=== PATIENT | male | born 1950 | race African-American/Black ===

== ENCOUNTER → 2017-01-03 | Outpatient (CLI) | payer BC, MEDICARE ==
[~2017-01-03] MED LIST: ACET-822 PO; ASPI-183 PO; ASPI325T24 PO; ATOR10 PO; BEDSIDE COMMODE1 MI1; CARD240C6 PO; CIAL5TAB PO; CLAR10CA3 PO; CLOP75 PO; CYMB60CA PO; DIFL500T PO; DIOV320T PO; FERR324T PO; GLUCTAB PO; HYDR-3583 PO; HYDR10TA16 PO; LIPI40TA PO; METF1000 PO; METO50TA PO; MULTTAB67 PO; NEUR600T PO; NIFE1TAB85 PO; NIFE1TAB86 PO; OMEGCAP PO; OMEP20TA93 PO; OSTEO BIFLEX TRIPLE PO; PLAV75TA29 PO; TAB-TAB PO; VARE1 PO; WALKER WHEELS/F1 MIS
== END ==
LOC: CPRE 11:19
PROVIDERS: ATTEND Orthopaedic Surgery Orthopaedic Surgery of the Spine
DX: Z00.00 Encounter for general adult medical examination without abnormal findings (principal)

== ENCOUNTER 2017-01-10 10:13 | Inpatient (IN) | payer BC, MEDICARE ==
[~2017-01-10] VITALS: Ht 185.4 cm; Wt 121.1 kg
[~2017-01-10 10:13] MED LIST changes: -ACET-822 PO; -ASPI-183 PO; +ASPI325T PO; -ASPI325T24 PO; -ATOR10 PO; -BEDSIDE COMMODE1 MI1; -CARD240C6 PO; -CIAL5TAB PO; -CLOP75 PO; -DIFL500T PO; -FERR324T PO; -GLUCTAB PO; -HYDR10TA16 PO; -NIFE1TAB86 PO; +OMEP20TA PO; -OMEP20TA93 PO; -TAB-TAB PO; -VARE1 PO; -WALKER WHEELS/F1 MIS
[2017-01-10] MEDS ORDERED: POVIDONE IODINE 5% (ANTISEPSIS KIT) 4 APPLICATIONS EACH NARE PRN (11:00)
[2017-01-10] MEDS ORDERED: CHLORHEXIDINE GLUCONATE 4% SOLN 120 ML BTL TOPICAL SCH (11:00)
[2017-01-10] MEDS ORDERED: CHLORHEXIDINE GLUCONATE 2 % 1 PACK (2 CLOTHS) TOPICAL PRN (11:00)
[2017-01-10] MEDS ORDERED: INSULIN HUMAN REGULAR 1,000 UNITS/10 ML VIAL SQ PRN (11:00)
[2017-01-10] MEDS ORDERED: VANCOMYCIN 1000 MG/NS 250 ML (for <70 kg) IV SCH ×2 (11:00)
[2017-01-10] MEDS ORDERED: SODIUM CHLORID 0.9% 500 ML IV PRN (11:00)
[2017-01-10] MEDS ORDERED: LACTATED RINGER'S 1000 ML IV PRN (11:00)
[2017-01-10] MEDS ORDERED: ceFAZolin 2 GM PREMIX 50 ML IV SCH (11:00)
[2017-01-10] MEDS ORDERED: METOPROLOL TARTRATE 25 MG TAB PO PRN (11:00)
[2017-01-10] MEDS ORDERED: NIFE1TAB86 PO (11:09)
[2017-01-10] MEDS ORDERED: ACET-822 PO (11:11)
[2017-01-10] MEDS ORDERED: GENTAMICIN SULFATE 80 MG/2 ML VIAL ONE (11:29)
[2017-01-10] MEDS ORDERED: ACETAMINOPHEN 1000 MG/100 ML 100 ML IV ONE (11:31)
[2017-01-10] MEDS ORDERED: HYDROmorphone HCL PF 2 MG/ML VIAL ONE (12:10)
[2017-01-10] MEDS ORDERED: ACETAMINOPHEN/HYDROcodone 325 MG/10 MG TAB PO PRN (15:00)
[2017-01-10] MEDS ORDERED: Post-op Orders (for Pharmacy) MISC XX ONE (15:00)
[2017-01-10] MEDS ORDERED: SODIUM CHLORIDE 0.9% FLUSH 5 ML FLUSH IVF PRN (15:00)
[2017-01-10] MEDS ORDERED: ZOLPIDEM TARTRATE 5 MG TAB PO PRN (15:00)
[2017-01-10] MEDS ORDERED: ONDANSETRON HCL 4 MG/2 ML VIAL IVP PRN (15:00)
[2017-01-10] MEDS ORDERED: ALUMINUM/MAGNESIUM/SIMETH 30 ML CUP PO PRN (15:00)
[2017-01-10] MEDS: SODIUM CHLORIDE 0.9% FLUSH 5 ML FLUSH IVF SCH ×2 (15:00→20:58)
--- NOTE | 2017-01-10 15:02 | HHI.PR ---
Immediate Post Op Note Procedure Date: Jan 10, 2017 Pre Op Diagnosis: L Hip OA Post Op Diagnosis: Same Surgeon: Royce Robb MD Egyptologist(s): Sobeida Palomino PA-C Procedure: L THR Complications: None Specimen(s) removed: None Estimated blood loss: 350cc Anesthesia: General Drains: None Patient to: PACU Patient Condition: Good Implant/Devices: SEE IMPLANT LOG (if applicable) Date/Time of Procedure: SEE SURGICAL CARE RECORD Royce Robb MD Jan 10, 2017 15:02
--- NOTE | 2017-01-10 15:06 | HHI.FF ---
Face to Face Verification Diagnosis: (1) Osteoarthritis of left hip Physical Therapy Gait training, Transfer training, bed to chair Hip: Total hip, Protocol: Left, Progress to weight bearing Right LE Weight Bearing: WB as tolerated Left LE Weight Bearing: WB as tolerated Nursing RN Days per Week: 3 x Week(s): 4 Nursing: Dressing changes (clean incision with alcohol and apply dry, sterile dressing ) Additional Instructions Pt/INR q Tuesday and , call/text results to Sobeida MALONE [phone] Goal INR 1.5-1.8 I have seen patient Billy Mcclure on 01/10/17. My clinical findings support the need for the requested home health care services because: Deconditioned w/ increased weakness I certify that my clinical findings support that this patient is homebound because: Post-op weakness Royce Robb MD Jan 10, 2017 15:06
[2017-01-10] MEDS ORDERED: WALKER WHEELS/F1 MIS (15:07)
[2017-01-10] MEDS ORDERED: DO NOT ADM ANY ANTICOAGULANT DRUGS PRN (15:07)
[2017-01-10] MEDS ORDERED: BEDSIDE COMMODE1 MI1 (15:07)
[2017-01-10] MEDS ORDERED: *morphine SULFATE 8 MG/ML PERIprocedure ONLY ONE ×2 (15:19→15:46)
--- NOTE | 2017-01-10 15:29 | MP ---
cc: LEO PEDRAZA MD GILLESPY, ALBERT DATE OF SURGERY: January 10, 2017 PREOPERATIVE DIAGNOSIS 1. Left hip severe osteoarthritis. 2. Obesity. POSTOPERATIVE DIAGNOSIS 1. Left hip severe osteoarthritis. 2. Obesity. PROCEDURE Left total hip arthroplasty. SURGEON Fabricio Robb MD JOB PLACEMENT SPECIALIST JAKI Gold ANESTHESIA General. COMPLICATIONS None. SPECIMEN None. ESTIMATED BLOOD LOSS 350 ccs. DRAIN None. CONDITION Stable. PLAN OF ACTIVITY Per orders. PROCEDURE My review assistant JAKI Gold was present for the entire surgical case. She was medically necessary for the entire case because of the complexity of the case and to facilitate the performance of the procedure. The INSURANCE AGENCY OWNER at the back table was not a skill set for this case to manipulate the instruments, e.g., the multiple different types of soft tissue retractors, trial implants and also permanent implants. The patient was brought in the operating room and had satisfactory general anesthesia by the Department of Anesthesia. The patient was placed in the lateral decubitus position. Because of the patient's obesity great care was made to protect all pressure points. The left hip and lower extremity was prepped and draped in usual sterile manner. A small posterolateral exposure to the hip was made. Dissection was carried through considerable amount of adipose tissue. Dissection was carried down to the fascia jose. The fascia jose and gluteus jolly was incised in line with the skin incision. Charnley retractor was placed in the wound in order to allow better exposure. Great care was made to protect the sciatic nerve throughout the entire operative procedure. The short externals removed as a group. The hip abductors were preserved. Capsulotomy was performed of the hip and the hip was dislocated posteriorly. The patient was found to have severe osteoarthritis involving the left hip joint. Osteotomy was made on the neck at the appropriate level. Exposure of the acetabulum was made. 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 The hip was initially medialized and then reamed to 55 mm outer diameter. Bicentric cup, Press-Fit type manner was found to be stable and satisfactory. This was removed. Preparation for the femur was made. Using the BiomTinypass taper lock system it was sequentially broached to a #12 broach. Trial reduction was made with 0 neck, 28 mm head. The hip was again reduced. The patient was found to have satisfactory limb length, satisfactory stability and satisfactory range of motion. The trial components were removed. The wound was irrigated with copious amounts of sterile saline antibiotic solution. A #12 prosthesis Biomet taper lock was then inserted into the femur approximately 15-20 degrees anteversion. It was an excellent fit and fill. A ceramic head was then used, 28 mm ball. The hip was then reduced with a 55 mm bicentric cup in a Press-Fit type manner, 0 neck on the stem with standard offset. The patient again was found to have satisfactory limb length, satisfactory stability and satisfactory range of motion. The short external was repaired back to the greater trochanter with drill holes using #2 Tycron suture. The fascia jose and gluteus jolly ___ in line with skin incision using #2 Tycron suture. Subcu tissue layer was closed in layers with 0 Vicryl and 2-0 Vicryl, skin was approximated with running subcuticular 2-0 Nylon. Sterile dressing was applied. The patient tolerated the procedure well and arrived in the recovery room in stable and satisfactory condition. MD MICHAEL Kohli/TLL /2:47 PM /3:00 PM
[2017-01-10] MEDS ORDERED: MORPHINE SULFATE 10 MG/ML INJ IM PRN (15:30)
[2017-01-10] MEDS: LACTATED RINGER'S 1000 ML INJ 1,000 ML IV SCH (15:40)
--- NOTE | 2017-01-10 15:55 | RADRPT ---
EXAM DATE/TIME: 01/10/2017 15:26 [facility] COMPARISON: No previous studies available for comparison. INDICATIONS : Post left total hip arthroplasty MEDICAL HISTORY : Arthritis. SURGICAL HISTORY : Right total hip arthroplasty ENCOUNTER: Initial ACUITY: 1 day PAIN SCORE: 0/10 LOCATION: Left Hip FINDINGS: There is a right hip arthroplasty in gross anatomic alignment. Apparent interval placement of left-si ded hip arthroplasty. Prosthetic components appear well positioned and in anatomic alignment. No sign ificant acute bony fracture. Postsurgical changes noted in the soft tissues. CONCLUSION: 1. Status post left hip arthroplasty in anatomic alignment without significant acute fracture. Curtis Cruz MD on January 10, 2017 at 15:50 Board Certified Radiologist. This report was verified electronically.
[2017-01-10 17:00] VITALS: BP 156/66; PULSE 86; RESP 18; TEMP 98.7; O2SAT 95
[2017-01-10 17:28] VITALS: O2SAT 96
[2017-01-10] MEDS: metFORMIN HCL 500 MG TAB PO SCH (17:53)
[2017-01-10] MEDS: GABAPENTIN 300 MG CAP PO SCH (17:54)
[2017-01-10] MEDS: ACETAMINOPHEN/HYDROcodone 325 MG/10 MG TAB PO PRN ×2 (17:54→22:08)
[2017-01-10 19:45] VITALS: BP 108/56; PULSE 105; RESP 19; TEMP 98.8; O2SAT 96
[2017-01-10] MEDS: METOPROLOL TARTRATE 50 MG TAB PO SCH (20:58)
[2017-01-10] MEDS: ATORVASTATIN 40 MG TAB PO SCH (20:58)
[2017-01-11] VITALS (7 sets, daily range): BP systolic 127–166; BP diastolic 62–79; PULSE 75–91; RESP 16–20; TEMP 100–101.5; O2SAT 93–96
[2017-01-11] MEDS: LACTATED RINGER'S 1000 ML INJ 1,000 ML IV SCH ×2 (00:52→17:03)
[2017-01-11] MEDS: ACETAMINOPHEN/HYDROcodone 325 MG/10 MG TAB PO PRN ×6 (02:05→23:32)
[2017-01-11 05:47] LABS: HEMATOCRIT 34.6 % (39.0-51.0); REVIEW FLAG FINAL
[2017-01-11 05:50] LABS: PROTHROMBIN TIME - PATIENT 11.6 SEC (9.8-11.6)
--- NOTE | 2017-01-11 07:04 | PD.ORT.PN ---
Subjective Subjective Remarks POD#1 L THR No chest pain;no SOB Answered mutiple questions Objective Vitals Vital Signs Date Time Temp Pulse Resp B/P (MAP) Pulse Ox O2 Delivery O2 Flow Rate FiO2 01/11/17 03:55 100.0 84 18 133/69 (90) 95 01/11/17 00:45 100.1 91 18 127/62 (83) 93 01/10/17 19:45 98.8 105 19 108/56 (73) 96 01/10/17 19:13 Nasal Cannula 3.00 01/10/17 17:28 96 Nasal Cannula 2.00 01/10/17 17:00 98.7 86 18 156/66 (96) 95 01/10/17 16:30 98.6 63 16 142/69 (93) 96 Nasal Cannula 2 01/10/17 16:15 61 15 153/74 (100) 96 01/10/17 16:00 67 16 142/75 (97) 95 01/10/17 15:45 58 11 143/70 (94) 96 2 01/10/17 15:30 62 17 147/66 (93) 96 01/10/17 15:15 59 24 143/66 (91) 92 Nasal Cannula 3 01/10/17 15:06 98.4 98 16 134/71 (92) 98 Simple Mask 6 01/10/17 11:00 98.8 64 16 180/93 (122) 97 I/O 01/10/17 01/10/17 01/10/17 01/11/17 01/11/17 01/11/17 07:00 15:00 23:00 07:00 15:00 23:00 Intake Total 720 ml 1691 ml Output Total 900 ml 725 ml Balance -180 ml 966 ml Intake Oral 720 ml 480 ml IV Total 1211 ml Output Urine Total 900 ml 725 ml # Bowel Movements 0 Result Diagram: 01/11/17 0515 Other Results Laboratory Tests Test 01/11/17 05:15 Prothromb Time International Ratio 1.0 RATIO Prothrombin Time 11.6 SEC (9.8-11.6) Objective Remarks N/V intact No LLD No calf tenderness;neg darwin's sign Assessment & Plan Assessment and Plan Ortho stable PT,Rehab Coumadin,TEDS,Sequentials for DVT prophylaxsis Discharge home tomorrow with [facility] nursing,PT Royce Robb MD Jan 11, 2017 07:04
[2017-01-11] MEDS: GABAPENTIN 300 MG CAP PO SCH (08:48)
[2017-01-11] MEDS: PANTOPRAZOLE SOD 20 MG DELAYED RELEASE TAB PO SCH (08:48)
[2017-01-11] MEDS: VALSARTAN 160 MG TAB PO SCH (08:48)
[2017-01-11] MEDS: METOPROLOL TARTRATE 50 MG TAB PO SCH ×2 (08:48→20:11)
[2017-01-11] MEDS: DULoxetine HCl DR 60 MG CAP PO SCH (08:49)
[2017-01-11] MEDS: LORATADINE 10 MG TAB PO SCH (08:49)
[2017-01-11] MEDS: metFORMIN HCL 500 MG TAB PO SCH ×2 (08:49→16:51)
[2017-01-11] MEDS: NIFEdipine 60 MG SUSTAINED RELEASE TAB PO SCH (08:49)
[2017-01-11] MEDS: SODIUM CHLORIDE 0.9% FLUSH 5 ML FLUSH IVF SCH ×2 (08:50→20:11)
--- NOTE | 2017-01-11 11:43 | PD.CONS ---
HPI Service [facility] Hospitalists Consult Requested By Dr. Robb Reason for Consult Medical management Primary Care Physician Non-Staff Diagnoses: (1) Hypertension (2) Diabetes mellitus (3) Peripheral arterial disease (4) Osteoarthritis of left hip History of Present Illness The patient is a 66-year-old male here for left total hip arthroplasty. Hospitalist consult was requested for medical management. The patient states that he is having pain in the left hip, which is not really controlled with the current pain medications. He states that he takes pain medication at home. No chest pain or dyspnea. No other complaints at this time. Review of Systems Constitutional: DENIES: Fever, Chills, Night Sweats Eyes: DENIES: Blurred vision, Vision loss Ears, nose, mouth, throat: DENIES: Hearing loss Respiratory: DENIES: Cough, Wheezing, Sputum production, Shortness of breath Cardiovascular: DENIES: Chest pain, Palpitations, Dyspnea on Exertion, Lower Extremity Edema Gastrointestinal: DENIES: Abdominal pain, Constipation, Diarrhea, Nausea, Vomiting Genitourinary: DENIES: Urinary frequency, Urinary incontinence, Urgency, Hematuria, Dysuria, Nocturia Musculoskeletal: COMPLAINS OF: Joint pain, DENIES: Muscle aches Integumentary: DENIES: Pruritus, Rash Hematologic/lymphatic: DENIES: Bruising Neurologic: DENIES: Headache Past Family Social History Allergies: Coded Allergies: benazepril (Unverified Allergy, Intermediate, 01/10/17) captopril (Unverified Allergy, Intermediate, 01/10/17) enalaprilat (Unverified Allergy, Intermediate, 01/10/17) fosinopril (Unverified Allergy, Intermediate, 01/10/17) lisinopril (Unverified Allergy, Intermediate, 01/10/17) quinapril (Unverified Allergy, Intermediate, 01/10/17) Past Medical History Hypertension Hyperlipidemia Diabetes mellitus Peripheral arterial disease Past Surgical History Left total hip arthroplasty 01/10/17 Right total hip arthroplasty Elbow surgery Reported Medications See list Family History Heart disease Diabetes Social History Quit smoking 6 years ago. Drinks 2 alcoholic beverages per day. Denies illicit drug use. Physical Exam Vital Signs Vital Signs Date Time Temp Pulse Resp B/P (MAP) Pulse Ox O2 Delivery O2 Flow Rate FiO2 01/11/17 08:00 101.3 81 20 161/73 (102) 96 01/11/17 03:55 100.0 84 18 133/69 (90) 95 01/11/17 00:45 100.1 91 18 127/62 (83) 93 01/10/17 19:45 98.8 105 19 108/56 (73) 96 01/10/17 19:13 Nasal Cannula 3.00 01/10/17 17:28 96 Nasal Cannula 2.00 01/10/17 17:00 98.7 86 18 156/66 (96) 95 01/10/17 16:30 98.6 63 16 142/69 (93) 96 Nasal Cannula 2 01/10/17 16:15 61 15 153/74 (100) 96 01/10/17 16:00 67 16 142/75 (97) 95 01/10/17 15:45 58 11 143/70 (94) 96 2 01/10/17 15:30 62 17 147/66 (93) 96 01/10/17 15:15 59 24 143/66 (91) 92 Nasal Cannula 3 01/10/17 15:06 98.4 98 16 134/71 (92) 98 Simple Mask 6 Physical Exam GENERAL: Well-nourished, well-developed male in no acute distress. Sitting up in a chair. HEENT: Normocephalic, atraumatic. Pupils equal, round and reactive. Extraocular movements intact. No scleral icterus. No injection or drainage. Oropharynx is clear. Mucous membranes are moist. Poor dentition. CARDIOVASCULAR: Regular rate and rhythm without murmurs, gallops, or rubs. RESPIRATORY: Clear to auscultation. No wheezes, rales, or rhonchi. Breathing is non-labored. GASTROINTESTINAL: Abdomen soft, non-tender, nondistended. EXTREMITIES: No lower extremity edema. No calf tenderness. LEIGHTON hose. PSYCH: Alert and oriented x 3. Laboratory Laboratory Tests Test 01/11/17 05:15 Hemoglobin 11.6 Hematocrit 34.6 Prothrombin Time 11.6 Prothromb Time International Ratio 1.0 Result Diagram: 01/11/17 0515 Imaging Last Impressions Hip and Pelvis X-Ray 01/10/17 0000 Signed Impressions: Service Date/Time: Tuesday, January 10, 2017 15:26 - CONCLUSION: 1. Status post left hip arthroplasty in anatomic alignment without significant acute fracture. Curtis Cruz MD Assessment and Plan Assessment and Plan 1. Left hip osteoarthritis: Status post left total hip arthroplasty, POD #1. Management per orthopedic surgery. Continue pain control, bowel regimen. 2. Hypertension: Continue Procardia, Diovan, metoprolol. 3. Hyperlipidemia: Continue statin. 4. Diabetes mellitus: Continue metformin. Monitor Accu-Cheks and cover with sliding scale insulin. 5. DVT prophylaxis: Coumadin. Problem Qualifiers (1) Osteoarthritis of left hip: Qualified Codes: M16.12 - Unilateral primary osteoarthritis, left hip Romie Crum MD Jan 11, 2017 11:43
[2017-01-11] MEDS ORDERED: DEXTROSE 50% IN WATER 50 ML VIAL(D50) IV PUSH PRN (11:45)
[2017-01-11] MEDS ORDERED: GLUCAGON 1 MG/ML VIAL OTHER PRN (11:45)
[2017-01-11] MEDS: INSULIN ASPART SUPPLEMENTAL SCALE SQ SCH ×3 (12:00→21:22)
[2017-01-11] MEDS ORDERED: WARFARIN SOD 5 MG TAB PO SCH (16:00)
[2017-01-11] MEDS ORDERED: WARFARIN SOD 7.5 MG TAB PO ONE (16:00)
[2017-01-11] MEDS: ATORVASTATIN 40 MG TAB PO SCH (20:11)
[2017-01-11] MEDS: DOCUSATE SODIUM 100 MG CAP PO SCH (20:11)
[2017-01-12 00:20] VITALS: BP 133/63; PULSE 85; RESP 18; TEMP 99.7; O2SAT 96
[2017-01-12] MEDS: ACETAMINOPHEN/HYDROcodone 325 MG/10 MG TAB PO PRN ×3 (03:49→12:11)
[2017-01-12 04:15] VITALS: BP 148/72; PULSE 66; RESP 18; TEMP 99.9; O2SAT 97
[2017-01-12] MEDS: LACTATED RINGER'S 1000 ML INJ 1,000 ML IV SCH (04:30)
[2017-01-12 06:17] LABS: AUTOMATED NEUTROPHIL # 5.4 TH/MM3 (1.8-7.7); BASOPHIL % 0.5 % (0.0-2.0); EOSINOPHIL % 0.4 % (0.0-4.0); HEMO FLAGS DIFF FINAL; LYMPH % 19.2 % (9.0-44.0); LYMPHOCYTE # 1.5 TH/MM3 (1.0-4.8); MEAN CELL VOLUME 88.4 FL (80.0-100.0); MEAN CORPUSCULAR HEMOGLOBIN 29.9 PG (27.0-34.0); MEAN CORPUSCULAR HGB CONC 33.8 % (32.0-36.0); MONO % 12.1 % (0.0-8.0); NEUT % 67.8 % (16.0-70.0); PLATELET COUNT 143 TH/MM3 (150-450); RED BLOOD COUNT 3.85 MIL/MM3 (4.50-5.90); RED CELL DISTRIBUTION WIDTH 13.7 % (11.6-17.2)
[2017-01-12 06:25] LABS: INTERNATIONAL NORMALIZED RATIO 1.1 RATIO; PROTHROMBIN TIME - PATIENT 11.7 SEC (9.8-11.6)
[2017-01-12 06:47] LABS: BICARBONATE 25.3 MEQ/L (21.0-32.0); POTASSIUM 3.3 MEQ/L (3.5-5.1)
--- NOTE | 2017-01-12 07:48 | PD.ORT.PN ---
Subjective Subjective Remarks pt doing much better ready to go home today, already has all his bags packed Objective Vitals Vital Signs Date Time Temp Pulse Resp B/P (MAP) Pulse Ox O2 Delivery O2 Flow Rate FiO2 01/12/17 04:15 99.9 66 18 148/72 (97) 97 01/12/17 00:20 99.7 85 18 133/63 (86) 96 01/11/17 19:22 101.5 91 16 166/79 (108) 96 01/11/17 16:00 100.8 91 16 157/72 (100) 94 01/11/17 16:00 16 01/11/17 12:11 100.5 75 18 162/79 (106) 95 01/11/17 11:00 93 21 01/11/17 08:00 101.3 81 20 161/73 (102) 96 I/O 01/11/17 01/11/17 01/11/17 01/12/17 01/12/17 01/12/17 07:00 15:00 23:00 07:00 15:00 23:00 Intake Total 1691 ml 760 ml 720 ml 600 ml Output Total 725 ml 1200 ml 1250 ml 1050 ml Balance 966 ml -440 ml -530 ml -450 ml Intake Oral 480 ml 760 ml 720 ml 600 ml IV Total 1211 ml Output Urine Total 725 ml 1200 ml 1250 ml 1050 ml # Bowel Movements 0 0 0 Result Diagram: 01/12/17 0535 01/12/17 0535 Other Results Laboratory Tests Test 01/12/17 05:35 Prothromb Time International Ratio 1.1 RATIO Prothrombin Time 11.7 SEC (9.8-11.6) Objective Remarks sitting up in chair, in room left hip dressing dry and intact N/V intact No LLD No calf tenderness;neg darwin's sign Assessment & Plan Assessment and Plan POD # 2 s/p L ANTONELLA Ortho stable PT,Rehab Coumadin,TEDS,Sequentials for DVT prophylaxsis Discharge home today with [facility] nursing,PT orthopedically stable Sobeida Palomino Jan 12, 2017 07:48
[2017-01-12 08:00] VITALS: BP 185/80; PULSE 98; RESP 20; TEMP 100.4; O2SAT 93
[2017-01-12] MEDS: INSULIN ASPART SUPPLEMENTAL SCALE SQ SCH ×2 (08:00→12:00)
[2017-01-12] MEDS: LORATADINE 10 MG TAB PO SCH (08:09)
[2017-01-12] MEDS: DOCUSATE SODIUM 100 MG CAP PO SCH (08:10)
[2017-01-12] MEDS: DULoxetine HCl DR 60 MG CAP PO SCH (08:10)
[2017-01-12] MEDS: PANTOPRAZOLE SOD 20 MG DELAYED RELEASE TAB PO SCH (08:10)
[2017-01-12] MEDS: VALSARTAN 160 MG TAB PO SCH (08:10)
[2017-01-12] MEDS: metFORMIN HCL 500 MG TAB PO SCH (08:10)
[2017-01-12] MEDS: METOPROLOL TARTRATE 50 MG TAB PO SCH (08:10)
[2017-01-12] MEDS: NIFEdipine 60 MG SUSTAINED RELEASE TAB PO SCH (08:15)
[2017-01-12] MEDS: SODIUM CHLORIDE 0.9% FLUSH 5 ML FLUSH IVF SCH (08:19)
--- NOTE | 2017-01-12 10:42 | HHI.PR ---
Subjective Remarks Follow-up hypertension, diabetes. The patient has no complaints at this time. He is still having pain in the left hip, but states that it is tolerable. He states that he is going home today. He denies chest pain, dyspnea, cough. Denies nausea or vomiting. Denies dysuria. Objective Vitals Vital Signs Date Time Temp Pulse Resp B/P (MAP) Pulse Ox O2 Delivery O2 Flow Rate FiO2 01/12/17 08:00 100.4 98 20 185/80 (115) 93 01/12/17 04:15 99.9 66 18 148/72 (97) 97 01/12/17 00:20 99.7 85 18 133/63 (86) 96 01/11/17 19:22 101.5 91 16 166/79 (108) 96 01/11/17 16:00 100.8 91 16 157/72 (100) 94 01/11/17 16:00 16 01/11/17 12:11 100.5 75 18 162/79 (106) 95 01/11/17 11:00 93 21 I/O 01/11/17 01/11/17 01/11/17 01/12/17 01/12/17 01/12/17 07:00 15:00 23:00 07:00 15:00 23:00 Intake Total 1691 ml 760 ml 720 ml 600 ml Output Total 725 ml 1200 ml 1250 ml 1050 ml Balance 966 ml -440 ml -530 ml -450 ml Intake Oral 480 ml 760 ml 720 ml 600 ml IV Total 1211 ml Output Urine Total 725 ml 1200 ml 1250 ml 1050 ml # Bowel Movements 0 0 0 Result Diagram: 01/12/17 0535 01/12/17 0535 Imaging Last Impressions Hip and Pelvis X-Ray 01/10/17 0000 Signed Impressions: Service Date/Time: Tuesday, January 10, 2017 15:26 - CONCLUSION: 1. Status post left hip arthroplasty in anatomic alignment without significant acute fracture. Curtis Cruz MD Objective Remarks General: No acute distress. Sitting up in a chair. Heart: Regular rate and rhythm. No murmur. Lungs: Clear to auscultation bilaterally. No wheezes, rales, or rhonchi. Breathing is nonlabored. Abdomen: Soft, nontender, nondistended. Extremities: No lower extremity edema. Psych: Alert and oriented. Procedures 01/10/17 left total hip arthroplasty Urinary Catheter: No Vascular Central Line Catheter: No A/P Problem List: (1) Hypertension ICD Code: I10 - Essential (primary) hypertension (2) Diabetes mellitus ICD Code: E11.9 - Type 2 diabetes mellitus without complications (3) Peripheral arterial disease ICD Code: I73.9 - Peripheral vascular disease, unspecified (4) Osteoarthritis of left hip ICD Code: M16.12 - Unilateral primary osteoarthritis, left hip Assessment and Plan 1. Left hip osteoarthritis: Status post left total hip arthroplasty, POD #2. Management per orthopedic surgery. Continue pain control, bowel regimen. 2. Hypertension: Continue Procardia, Diovan, metoprolol. 3. Hyperlipidemia: Continue statin. 4. Diabetes mellitus: Continue metformin. Monitor Accu-Cheks and cover with sliding scale insulin. 5. DVT prophylaxis: Coumadin. 6. Fever: Uncertain etiology. Patient denying respiratory or urinary symptoms. He does not want further workup stating "this happened the last time I was here too". Continue incentive spirometry. Patient was advised to return to the hospital if he develops any shortness of breath, worsening fever, dysuria, or other symptoms. Discharge Planning Discharge home today per orthopedic surgery. Problem Qualifiers (1) Osteoarthritis of left hip: Qualified Codes: M16.12 - Unilateral primary osteoarthritis, left hip Romie Crum MD Jan 12, 2017 10:42
[2017-01-12 11:08] VITALS: O2SAT 92
[2017-01-12] MEDS ORDERED: POTASSIUM CHLORIDE 10 MEQ CONTROLLED RELEASE TAB PO ONE (11:30)
[2017-01-12] MEDS ORDERED: WARFARIN SOD 5 MG TAB PO SCH (16:00)
== END 2017-01-12 14:08 | disposition home health service (06) | DRG 470 ==
LOC: HSDI 10:13 → N06B 17:03
PROVIDERS: ADMIT Orthopaedic Surgery Orthopaedic Surgery of the Spine; ATTEND Orthopaedic Surgery Orthopaedic Surgery of the Spine
PROC: 0SRB04A Replacement of Left Hip Joint with Ceramic on Polyethylene Synthetic Substitute, Uncemented, Open Approach (ICD-10-PCS; principal; 2017-01-10 12:42)
DX: M16.12 Unilateral primary osteoarthritis, left hip (principal); E11.42 Type 2 diabetes mellitus with diabetic polyneuropathy; E11.51 Type 2 diabetes mellitus with diabetic peripheral angiopathy without gangrene; I10 Essential (primary) hypertension; E78.5 Hyperlipidemia, unspecified; Z96.641 Presence of right artificial hip joint; R50.9 Fever, unspecified; G47.30 Sleep apnea, unspecified; K21.9 Gastro-esophageal reflux disease without esophagitis; E66.9 Obesity, unspecified; Q65.89 Other specified congenital deformities of hip; Z87.891 Personal history of nicotine dependence; Z79.84 Long term (current) use of oral hypoglycemic drugs
CPT/HCPCS: 73501; 80048; 82948; 85014; 85018; 85025; 85610; 86850; 86900; 86901; 86920; 94150; J0131; J0690; J1170; J1580; J1815; J2270; J3370; J7050; J7120; L1830